=== PATIENT | male | born 1995 | race Two or more races ===

== ENCOUNTER 2024-03-11 19:07 | Emergency (ER) | payer OTHER, SELFPAY ==
[2024-03-11 19:17] VITALS: BP 162/95; PULSE 79; RESP 20; TEMP 36.9; O2SAT 97
--- NOTE | 2024-03-11 20:38 | EDNOTE_ITS ---
ED Wound/Laceration-RME/HPI General Chief Complaint: Wound/Laceration Stated Complaint: Laceration to right thumb Time Seen by Provider: 03/11/24 20:08 Arrival date/time: 03/11/24 19:07 RME / HPI RME / HPI narrative: 29-year-old male patient was brought in by coworker for evaluation regarding laceration to the right hand. 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 Patient is able to bend and extend the finger without any limitation. Incident happened few minutes prior to ER visit. Tetanus vaccination is unknown. Denies any other complaints. Related Data Previous Rx's ?Medication ?Instructions ?Recorded cephalexin 500 mg capsule 500 mg PO Q8H 7 days #21 cap s 03/11/24 ibuprofen 800 mg tablet 800 mg PO TID PRN pain #30 t abs 03/11/24 Allergies Allergy/AdvReac Type Severity Reaction Status Date / Time No Known Allergies Allergy Verified 03/11/24 19:13 Review of Systems Review of Systems Narrative Review of Systems: Review of system reviewed and within normal limits except mentioned in HPI ED Exam Narrative Physical exam: VITAL SIGNS: Reviewed. GENERAL APPEARANCE: Alert and interactive, follows commands, no acute distress, HEAD AND FACE: Non-traumatic. ENT: PERRL, pink conjunctivitis, eyelid no trauma, Mucous membrane moist. NECK: Supple, nontender, no nuchal rigidity. CHEST: No tenderness, no crepitus, no paradoxical movement, no retractions. LUNGS: Clear, well ventilated, symmetric, no rales, no wheezing, no ronchi, no stridor, good breath sounds bilaterally. HEART: Regular rate, regular rhythm, no murmur, no gallops. ABDOMEN: Soft, positive bowel sounds, nondistended, no guarding, nontender, no rebound, no masses, RECTAL: Deferred. GENITAL: Deferred. NEUROLOGICAL: Gross motor function intact sensory function intact, Appropriate for age. MUSCULOSKELETAL: low back nontender, full range of motion. EXTREMITIES: +4 cm flap-like laceration, send skin, right thumb medial aspect, full range of motion. SKIN: Color pink, dry, no rash, no abrasions, no contusions. LYMPHATICS: Deferred. Course Quality Measures none Orders Category Date Time Status Set Up Suture Tray STAT Care 03/11/24 20:46 Active Ibuprofen Tab [Motrin Tab] Med 03/11/24 20:43 Discontinued 800 mg PO X1 ONE Tet,Diphth,Pertuss(Acell)-Tdap [Boostrix Vacc] Med 03/11/24 20:43 Discontinued 0.5 ml IMI .ONCE ONE cephALEXin [Keflex] Med 03/11/24 20:43 Discontinued 500 mg PO X1 ONE Vital Signs Vital signs: Vital Signs Temperature 98.4 F 03/11/24 19:17 Pulse Rate 79 03/11/24 19:17 Respiratory Rate 20 03/11/24 19:17 Blood Pressure 162/95 H 03/11/24 19:17 Pulse Oximetry (%) 97 03/11/24 19:17 Oxygen Delivery Method Room Air 03/11/24 19:17 Procedures -ED Laceration Laceration 1: Site: other (Right thumb) Size (cm): 4 Description: flap Depth: simple, single layer Local Anesthetic: lidocaine 1% Amount of anesthesia used (mL): 5 Pre-repair: irrigated extensively and deep structures intact Skin layer closed with: nylon Size (cm): 5-0 Number of sutures: 10 Technique: simple, interrupted Wound / Laceration MDM Narrative MDM Narrative:: 29-year-old male patient was brought in by coworker for evaluation regarding laceration to the right hand. 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 Patient is able to bend and extend the finger without any limitation. Incident happened few minutes prior to ER visit. Tetanus vaccination is unknown. Denies any other complaints. Repair and suturing was done by me, patient was advised regarding possible necrosis of the skin since he is a very thin skin and is flap-like. Vascular supply is compromised to the skin. Patient tolerated repair well. Patient was given Keflex and Boostrix in the emergency room. Patient data External records reviewed:: None Clinical information provided by:: patient Social determinants that could affect healthcare access:: none Patient has the following chronic illnesses:: None How is presenting disease/condition affected by chronic disease/condition?: no chronic disease Evaluation data The following diagnostics were reviewed and interpreted by me:: other (specify) (None) Lab and/or radiology exams considered but not ordered:: None Interpretation Summary: None Medications / Prescriptions Medications or Prescriptions considered but not ordered:: None Medication administrations:: Medication Administration History Discontinued Medications Cephalexin HCl (Cephalexin 250 Mg Capsule) 500 mg PO X1 ONE Stop: 03/11/24 20:44 Diphtheria/Tetanus/Acell Pertussis (Diphth,Pertuss(Acell),Tet Vac 0.5 Ml Vial) 0.5 ml IMi .ONCE ONE Stop: 03/11/24 20:44 Ibuprofen (Ibuprofen Tab 400 Mg Tablet) 800 mg PO X1 ONE Stop: 03/11/24 20:44 Boostrix, Keflex, Motrin Consultations Consultation(s) initiated? (list below): No Diagnosis Wound Differential Diagnosis: laceration, abscess and avulsion of skin Most likely diagnosis given after review of the tests above:: Right thumb laceration Admission Indicated Admission indicated?: not indicated Explain why admission is indicated or not indicated:: Stable Admission Request Was there a request for admission?: No Disposition Plan Disposition Plan: Discharge Discharge Attestation Discharge Attestation: The patient was given an opportunity to ask questions and understood the discharge instructions. Discharge instructions specifically effects, indications for sooner follow up or return to the emergency department, and the expected course of current diagnosis. Patient condition: Stable Discharge Plan Plan Patient Disposition: HOME (Self Care) Disposition Comment: stable Prescriptions/Referrals Prescriptions/Med Rec: New cephalexin 500 mg capsule 500 mg PO Q8H 7 Days Qty: 21 0RF ibuprofen 800 mg tablet 800 mg PO TID PRN (Reason: pain) Qty: 30 0RF Problem List Clinical Impression: Laceration of thumb Patient/Caregiver Discharge Instructions Discharge Activity: activity as tolerated Education Materials: ED Laceration: All Closures Additional Instructions: Thank you for the opportunity for serving you today. You are stable for discharged . You are advised to: Follow-up with your PCP in 1 to 2 days Return to ED for worsening of symptoms Increase oral fluids Take medication as prescribed First dressing should be done 2 days from now. For removal of sutures in 10 days Print Language: Azeri Stand Alone Forms: Madiha Award Info., Patient Portal Info Letter STEPHANY/NELY Supervising Physician STEPHANY/NELY Supervising Physician: MD Nicolás
[2024-03-11] MEDS: DIPHTH,PERTUSS(ACELL),TET VAC 0.5 ML VIAL IMi (20:59)
[2024-03-11] MEDS: IBUPROFEN TAB 400 MG TABLET 800 MG PO (21:00)
[2024-03-11] MEDS: cephALEXin 250 MG CAPSULE 500 MG PO (21:00)
== END 2024-03-11 22:17 | disposition home or self-care (01) ==
PROVIDERS: Emergency Provider Emergency Medicine; Referring Provider Emergency Medicine
DX: S61.011A Laceration without foreign body of right thumb without damage to nail, initial encounter (principal); W31.89XA Contact with other specified machinery, initial encounter; Y99.0 Civilian activity done for income or pay; Z23 Encounter for immunization
CPT/HCPCS: 12002; 90471; 90715; 99283; A9270

== ENCOUNTER 2024-07-12 21:30 | Emergency (ER) | payer OTHER, SELFPAY ==
[2024-07-12 21:33] VITALS: BMI 36.2
[2024-07-12 22:11] VITALS: BP 124/67; PULSE 89; RESP 18; TEMP 36.8; O2SAT 99
--- NOTE | 2024-07-12 23:05 | EDNOTE_ITS ---
ED Wound/Laceration-RME/HPI General Chief Complaint: Wound/Laceration Stated Complaint: LAC TO HAND Time Seen by Provider: 07/12/24 22:42 Arrival date/time: 07/12/24 21:30 RME / HPI RME / HPI narrative: 29-year-old [id number] male presents to the ED with a complaint of a laceration between his 2nd and 3rd fingers in the webspace. He states he was walking in the kitchen of a [employer] holding a hose when he started to sl ip. He attempted to grab onto a metal sink which caused a laceration in the webspace between the 2nd and 3rd fingers of the right hand. His last tetanus was earlier this year. He denies any numbness or tingling distally. He denies any functional deficit. Injury occurred just prior to arrival. Related Data Previous Rx's ?Medication ?Instructions ?Recorded ibuprofen 800 mg tablet 800 mg PO TID PRN pain #30 t abs 03/11/24 ibuprofen 600 mg tablet 600 mg PO TID PRN pain #30 t abs 07/13/24 Allergies Allergy/AdvReac Type Severity Reaction Status Date / Time No Known Allergies Allergy Verified 07/21/24 16:23 Review of Systems Review of Systems Systems Reviewed: All systems reviewed, normal except as documented Past Medical History Social History SMOKING STATUS: Never smoker ED Exam Narrative Physical exam: A&O, afebrile and non-toxic appearing 29 year old male, no acute distress. Lung are clear, RRR, Abdomen is non-distended. Laceration noted to the right hand between the 2nd/3rd webspace. No functional deficit. Bleeding controlled at this time. Moves all extremities well. Course Course Course Narrative: Wound cleansed and irrigated. Anesthesia with Lidocaine 1% wo Epinephrine with good result. Wound closure with #4 4.0 Nylon sutures with good wound edge approximation. Bleeding controlled. Wound bandaged. Work Comp paperwork completed. Quality Measures none Orders Category Date Time Status Dressing Care/Change NEEDED Care 07/13/24 00:31 Completed Miscellaneous Nursing Order NOW Care 07/12/24 23:07 Completed Set Up Suture Tray STAT Care 07/12/24 23:07 Completed Vital Signs Vital signs: Vital Signs Temperature 98.2 F 07/12/24 22:11 Pulse Rate 89 07/12/24 22:11 Respiratory Rate 18 07/12/24 22:11 Blood Pressure 124/67 07/12/24 22:11 Pulse Oximetry (%) 99 07/12/24 22:11 Oxygen Delivery Method Room Air 07/12/24 22:11 Procedures -ED Procedure Comment Wound cleansed and irrigated. Anesthesia with Lidocaine 1% wo Epinephrine with good result. Wound closure with #4 4.0 Nylon sutures with good wound edge approximation. Bleeding controlled. Wound / Laceration MDM Narrative MDM Narrative:: Symptoms, exam and diagnostic studies are consistent with: Laceration to the Right 2nd/3rd webspace with sutures x4. Patient was discharged home in stable condition. Patient/family advised to follow-up with their PCP in 24-48 hours. Encouraged to return to the ED for any new or worsening symptoms. Patient data External records reviewed:: None Clinical information provided by:: patient Social determinants that could affect healthcare access:: none Patient has the following chronic illnesses:: N/A How is presenting disease/condition affected by chronic disease/condition?: no chronic disease Evaluation data The following diagnostics were reviewed and interpreted by me:: other (specify) (N/A) Lab and/or radiology exams considered but not ordered:: N/A Interpretation Summary: N/A Medications / Prescriptions Medications or Prescriptions considered but not ordered:: N/A Medication administrations:: Lidocaine 1% without epi utilized for anesthesia of wound prior to sutures. Consultations Consultation(s) initiated? (list below): No Diagnosis Wound Differential Diagnosis: laceration, abrasion and avulsion of skin Most likely diagnosis given after review of the tests above:: Laceration between 2nd and 3rd webspace of the right hand. Admission Indicated Admission indicated?: not indicated Explain why admission is indicated or not indicated:: Stable for discharge Admission Request Was there a request for admission?: No Disposition Plan Disposition Plan: Discharge Discharge Attestation Discharge Attestation: The patient and all family members were given an opportunity to ask questions and understood the discharge instructions. Discharge instructions specifically effects, indications for sooner follow up or return to the emergency department, and the expected course of current diagnosis. Patient condition: Stable Discharge Plan Plan Patient Disposition: HOME (Self Care) Discharge Disposition comment: Stable and Improved Prescriptions/Referrals Prescriptions/Med Rec: New ibuprofen 600 mg tablet 600 mg PO TID PRN (Reason: pain) Qty: 30 0RF No Action ibuprofen 800 mg tablet 800 mg PO TID PRN (Reason: pain) Qty: 30 0RF Referrals: No Primary/Family,Physician [Primary Care Provider] - In 1 week Problem List Clinical Impression: Laceration Patient/Caregiver Discharge Instructions Education Materials: ED Laceration, Hand: All Closures Additional Instructions: Manten la herida limpia y seca. No lo expona a cantidades excesivas de humedad. No trabajar con productos qquimicos o limentos. Retirada de suturas en 10 mustafa. Print Language: Bruneian Stand Alone Forms: Madiha Award Info., Patient Portal Info Letter PA/DISTRIBUTION SPECIALIST Supervising Physician PA/DISTRIBUTION SPECIALIST Supervising Physician: Dr. Monzon
== END 2024-07-13 01:32 | disposition home or self-care (01) ==
PROVIDERS: Emergency Provider Emergency Medicine
DX: S61.210A Laceration without foreign body of right index finger without damage to nail, initial encounter (principal); S61.212A Laceration without foreign body of right middle finger without damage to nail, initial encounter; W45.8XXA Other foreign body or object entering through skin, initial encounter; Y93.01 Activity, walking, marching and hiking; Y92.512 Supermarket, store or market as the place of occurrence of the external cause; Y99.0 Civilian activity done for income or pay
CPT/HCPCS: 12001; 99283

== ENCOUNTER 2024-07-21 16:19 | Emergency (ER) | payer OTHER, SELFPAY ==
[2024-07-21 16:29] VITALS: BP 161/73; PULSE 88; RESP 18; TEMP 36.9; O2SAT 99
--- NOTE | 2024-07-21 17:08 | PD.EDHAND ---
Upper Extremity Injury RME/HPI General Chief Complaint: Hand/Wrist Problems Stated Complaint: SUTURE REMOVAL R) HAND Time Seen by Provider: 07/21/24 16:22 Source: patient Arrival date/time: 07/21/24 16:19 Mode of arrival: ambulatory Limitations: language barrier RME / HPI RME / HPI narrative: 29-year-old male presented for evaluation of sutured right hand. Patient reports multiple sutures fell out several days ago. Denies pain, worsening redness, fever, chills, chest pain. Patient is currently on antibiotic. MD complaint: injury to: wrist and hand Related Data Previous Rx's ?Medication ?Instructions ?Recorded ibuprofen 800 mg tablet 800 mg PO TID PRN pain #30 tabs 03/11/24 ibuprofen 600 mg tablet 600 mg PO TID PRN pain #30 tabs 07/13/24 Allergies Allergy/AdvReac Type Severity Reaction Status Date / Time No Known Allergies Allergy Verified 07/21/24 16:23 Review of Systems Constitutional Constitutional: Denies chills and Denies fever(s) Eyes Eyes: Denies blurry vision and Denies change in vision ENT Ears, Nose, Mouth, and Throat: Denies neck pain Cardiovascular Cardiovascular: Denies chest pain, Denies dyspnea and Denies irregular heart rhythm Respiratory Respiratory: Denies cough and Denies dyspnea Gastrointestinal Gastrointestinal: Denies abdominal pain and Denies vomiting Musculoskeletal Musculoskeletal: Denies neck pain, Denies numbness and Denies stiffness Integumentary/Breasts Skin/Breast: Denies new lesions, Denies non-healing lesions and Reports wounds Neurologic Neurologic: Denies numbness Past Medical History Social History SMOKING STATUS: Never smoker ED Exam General Limitations: Present language barrier General appearance: Present alert and in no apparent distress Head Head exam: Present atraumatic and normocephalic Eye Eye exam: Present normal appearance and EOMI ENT ENT exam: Present mucous membranes moist and normal external ear exam Neck Neck exam: Present normal inspection and full ROM Chest Chest inspection: Present normal inspection and symmetric chest wall rise Respiratory Respiratory exam: Absent respiratory distress Cardiovascular Cardiovascular exam: Present regular rate and +S1 Abdominal Exam Abdominal exam: Present soft; Absent distention Extremities Exam Extremities exam: Present normal inspection and full ROM Back Exam Back exam: Present normal inspection and full ROM Neurological Exam Neurological exam: Present alert and normal gait Psychiatric Psychiatric exam: Present normal affect Skin Skin exam: Present other (Well-healing laceration between 4th and 5th digit with [address] No surrounding erythema. No purulent discharge.) Course Quality Measures none Vital Signs Vital signs: Vital Signs Temperature 98.5 F 07/21/24 16:29 Pulse Rate 88 07/21/24 16:29 Respiratory Rate 18 07/21/24 16:29 Blood Pressure 161/73 H 07/21/24 16:29 Pulse Oximetry (%) 99 07/21/24 16:29 Oxygen Delivery Method Room Air 07/21/24 16:29 Extremity Injury MDM Narrative MDM Narrative:: 29-year-old male presented for suture removal. Patient tolerated procedure well. Patient is currently on antibiotics which I advised him to continue to take. Patient stable at time of discharge. Patient data External records reviewed:: [facility] previous records Clinical information provided by:: patient Social determinants that could affect healthcare access:: none Patient has the following chronic illnesses:: None reported. How is presenting disease/condition affected by chronic disease/condition?: no chronic disease Evaluation data The following diagnostics were reviewed and interpreted by me:: other (specify) Lab and/or radiology exams considered but not ordered:: Considered not ordered. Interpretation Summary: Considered not ordered. Medications / Prescriptions Medications or Prescriptions considered but not ordered:: Considered not ordered. Medication administrations:: Considered not ordered. Consultations Consultation(s) initiated? (list below): No Diagnosis Upper Extremity Injury Differential Diagnosis: other (Soft tissue infection, laceration, abrasion.) Most likely diagnosis given after review of the tests above:: Suture removal. Admission Indicated Admission indicated?: not indicated Admission Request Was there a request for admission?: No Disposition Plan Disposition Plan: Discharge Discharge Attestation Discharge Attestation: The patient and all family members were given an opportunity to ask questions and understood the discharge instructions. Discharge instructions specifically effects, indications for sooner follow up or return to the emergency department, and the expected course of current diagnosis. Patient condition: Stable Discharge Plan Plan Patient Disposition: HOME (Self Care) Discharge Disposition comment: stable Prescriptions/Referrals Prescriptions/Med Rec: No Action ibuprofen 800 mg tablet 800 mg PO TID PRN (Reason: pain) Qty: 30 0RF ibuprofen 600 mg tablet 600 mg PO TID PRN (Reason: pain) Qty: 30 0RF Problem List Clinical Impression: Visit for suture removal Impression comment: Continue to take antibiotics as directed for the duration of course. Do not soak hand. Continue to look for worsening redness and pain and return to the ED if your symptoms worsen or change. Patient/Caregiver Discharge Instructions Education Materials: ED Stitches/Staple Removal No ... Print Language: Albanian Stand Alone Forms: Madiha Award Info., Patient Portal Info Letter PA/STRAW HAT MACHINE OPERATOR Supervising Physician PA/STRAW HAT MACHINE OPERATOR Supervising Physician: Dr. Banuelos
== END 2024-07-21 17:36 | disposition home or self-care (01) ==
PROVIDERS: Emergency Provider Emergency Medicine
DX: Z48.02 Encounter for removal of sutures (principal)
CPT/HCPCS: 99281